=== PATIENT | female | born 1995 | race Caucasian/White ===

== ENCOUNTER 2019-07-01 12:44 | Outpatient (CLI) | payer OTHER ==
[2019-07-01] MEDS: NIFEdipine 10 MG CAP PO (13:58)
[2019-07-01 14:14] LABS: ADD UMIC YES; UR ASCORBIC ACID NEGATIVE (NEGATIVE); UR BILIRUBIN (Dip) NEGATIVE (NEGATIVE); UR BLOOD (Dip) NEGATIVE (NEGATIVE); UR CLARITY CLEAR (CLEAR); UR COLOR YELLOW (YELLOW); UR GLUCOSE (Dip) NEGATIVE (NEGATIVE); UR KETONES (Dip) 1+ mg/dL (NEGATIVE); UR LEUKOCYTE ESTERASE (Dip) 1+ Leu/ul (NEGATIVE); UR MUCUS FEW /HPF (NONE SEEN); UR NITRITE (Dip) NEGATIVE (NEGATIVE); UR RBC 0 /HPF (0-5); UR SPECIFIC GRAVITY (Dip) 1.012 (1.003-1.030); UR SQUAMOUS EPITHELIAL CELL FEW /HPF (FEW); UR TOTAL PROTEIN (Dip) NEGATIVE (NEGATIVE); UR UROBILINOGEN (Dip) NEGATIVE (NEGATIVE); UR WBC 3 /HPF (0-5)
[2019-07-01] MEDS: LACTATED RINGER'S 1,000 ML IV (15:05)
[2019-07-01] MEDS: AMPICILLIN 2 GM/NS (PMX) 100 ML IV (15:06)
[2019-07-01] MEDS: BETAMET NA PHOS/AC(6 MG/ML) 2 ML INJ SYG IM (15:12)
[2019-07-01] MEDS ORDERED: AMPICILLIN 1 GM/NS (PMX) 50 ML IV (17:30)
== END 2019-07-01 17:22 | disposition home or self-care (01) ==
LOC: OBT 12:44 → L-D 12:45 → OBT 17:22
DX: O62.9 Abnormality of forces of labor, unspecified (principal); O30.043 Twin pregnancy, dichorionic/diamniotic, third trimester; Z3A.32 32 weeks gestation of pregnancy
CPT/HCPCS: 76817; 81001; 87081; 87086; 96360; 96361; 96372

== ENCOUNTER 2019-07-02 14:56 | Outpatient (CLI) | payer OTHER ==
[2019-07-02] MEDS: BETAMET NA PHOS/AC(6 MG/ML) 2 ML INJ SYG IM (17:10)
== END 2019-07-02 18:55 | disposition home or self-care (01) ==
LOC: OBT 14:56 → L-D 14:57 → OBT 18:55
DX: O30.003 Twin pregnancy, unspecified number of placenta and unspecified number of amniotic sacs, third trimester (principal); Z3A.32 32 weeks gestation of pregnancy
CPT/HCPCS: J0702